=== PATIENT | male | born 1985 | race Caucasian/White ===

== ENCOUNTER 2018-10-24 07:48 | Emergency (ER) | payer MEDICAID ==
[~2018-10-24] VITALS: Ht 182.9 cm; Wt 75.0 kg
[2018-10-24] MEDS ORDERED: bacitracin 15gm ointment TP ONE (08:00)
[2018-10-24] MEDS ORDERED: TETanus/Pertussis (Acell)/Diphther VAC/PF (Tdap-Adult) 0.5ml syringe IM ONE (08:00)
[2018-10-24] MEDS ORDERED: AMOX-422 PO (08:03)
[2018-10-24 08:25] VITALS: BP 111/74
== END 2018-10-24 09:04 ==
LOC: ER 07:48
DX: S71.032A Puncture wound without foreign body, left hip, initial encounter (principal); S00.81XA Abrasion of other part of head, initial encounter; F17.200 Nicotine dependence, unspecified, uncomplicated; W54.0XXA Bitten by dog, initial encounter; Y93.89 Activity, other specified; Y92.89 Other specified places as the place of occurrence of the external cause; Y99.8 Other external cause status
CPT/HCPCS: 90471; 90715; 99284

== ENCOUNTER 2019-10-06 10:12 | Emergency (ER) | payer MEDICAID ==
[~2019-10-06] VITALS: Ht 182.9 cm; Wt 86.4 kg
[2019-10-06 10:15] VITALS: BP 134/85
== END 2019-10-06 10:47 | disposition home or self-care (01) ==
LOC: ER 10:13
DX: Z02.89 Encounter for other administrative examinations (principal); F17.200 Nicotine dependence, unspecified, uncomplicated
CPT/HCPCS: 99281